=== PATIENT | male | born 1950 | race Caucasian/White ===

== ENCOUNTER → 2016-09-27 06:39 | Day surgery (SDC) | payer MEDICARE, BC ==
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
[~2016-09-27 06:39] MED LIST: Buffered Lidocaine 1% SYR 3ML* 3 ML/SYR SYRINGE INTRADERM ONE; Bupivacaine 0.5% SDV PF* 30 ML VIAL ONE; Dexamethasone IV* 4 MG/ML 1 ML (4 MG) IV SLOW PU ONE; Dexamethasone IV* 4 MG/ML 1 ML (4 MG) ONE; Famotidine IV* 10 MG/ML 2 ML (20 mg) IV ONE; Famotidine IV* 10 MG/ML 2 ML (20 mg) ONE; Ketorolac INJ* 30 MG/ML 1 ML VIAL IV PRN; Lidocaine 0.5%* 50 ML SDV ONE; Midazolam* 1 MG/ML 2 ML VIAL (2 MG) ONE; Propofol* 10 MG/ML 20 ML BTL IV PUSH ONE; ceFAZolin 2 GM PREMIX (*) 2 GM/50 ML BAG IVPB ONE; fentaNYL* 50 MCG/ML 2 ML VIAL (100 MCG VIAL) IV PRN; fentaNYL* 50 MCG/ML 2 ML VIAL (100 MCG VIAL) ONE
[2016-09-27 09:20] VITALS: BP 110/80
--- NOTE | 2016-09-28 00:26 | OP ---
DATE OF OPERATION: 09/27/16 [facility] DATE OF : 46 SURGEON: Glory Bonner MD PIE CRIMPING MACHINE OPERATOR: STORMY Roa ANESTHESIOLOGIST: Jose De Jesus Agudelo MD ANESTHESIA: IV regional. PRE-OP DIAGNOSIS: Right thumb CMC arthritis. POST-OP DIAGNOSIS: Right thumb CMC arthritis. OPERATIVE PROCEDURE: Right thumb carpometacarpal arthroplasty. ESTIMATED BLOOD LOSS: Zero. TOURNIQUET TIME: About 40 minutes. INDICATIONS FOR PROCEDURE: Ryan is a 66-year-old male with pain at the base of his right thumb. On x-ray, he has severe degenerative arthritis of the CMC. He presents for CMC arthroplasty. DESCRIPTION OF PROCEDURE: The patient was brought to the operating room, was given a sedation anesthetic and an IV regional anesthetic with a tourniquet on his right upper arm. The skin of his right extremity was prepped and draped in the usual sterile fashion. An S-shaped incision was made centered at the CMC joint of the right thumb. We dissected through the subcutaneous tissue. The branches of the radial sensory nerve were retracted by the surgical endoscopist, Moni Ortega. The APL and EPB tendons were retracted and then the radial artery was dissected out and retracted by the surgical endoscopist, Moni Ortega. A distally based U-shaped flap was then created off the CMC joint capsule and it was subperiosteally dissected off the trapezium. The trapezium was removed in its entirety with rongeur and osteotome. The wound was copiously irrigated with saline. The CMC joint capsule was secured to the FCR tendon with a 4-0 nylon suture and then the remainder of the capsule was closed with 4-0 nylon suture. The skin edges were reapproximated with 4-0 nylon suture. The wound was dressed with Xeroform, 4x4, Webril, and a thumb spica splint, with this metacarpal in abduction. The patient tolerated the procedure well and was brought to the recovery room in good condition. [id number]/CPS #: [id number] [facility]
== END | disposition home or self-care (01) ==
LOC: OREAST 06:39
PROVIDERS: ATTEND Orthopaedic Surgery
PROC: 0RQS0ZZ Repair Right Carpometacarpal Joint, Open Approach (ICD-10-PCS; principal; 2016-09-27 07:45)
DX: M18.9 Osteoarthritis of first carpometacarpal joint, unspecified (principal); G20 Parkinson's disease; E78.00 Pure hypercholesterolemia, unspecified; N40.0 Benign prostatic hyperplasia without lower urinary tract symptoms; Z87.891 Personal history of nicotine dependence
CPT/HCPCS: 88304; 88311; J0690; J1100; J2250; J2704; J3010

== ENCOUNTER 2016-10-19 09:05 | Emergency (ER) | payer MEDICARE, BC ==
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
== END 2016-10-19 10:18 | disposition home or self-care (01) ==
LOC: UCCORT 09:05
DX: L03.116 Cellulitis of left lower limb (principal); F32.9 Major depressive disorder, single episode, unspecified; Z87.891 Personal history of nicotine dependence
CPT/HCPCS: 87070; 87077; 87186; 87205; 99212; G0463